=== PATIENT | female | born 1930 | race Caucasian/White ===

== ENCOUNTER 2017-05-15 15:32 | Emergency (ER) | payer MEDICARE, BC ==
--- NOTE | 2017-05-15 17:21 | EDM.PDOC ---
ED HPI GENERAL MEDICAL PROBLEM - General Chief Complaint: Lower Extremity Injury/Pain Stated Complaint: LUMPS LEFT THIGH AND BELOW KNEE Time Seen by Provider: 05/15/17 16:55 Source of Information: Reports: Patient History Limitations: Reports: No Limitations - History of Present Illness INITIAL COMMENTS - FREE TEXT/NARRATIVE: 86 yo female with a hx of Factor V Leiden Deficiency presents with a lumb behind her left knee that she is concerned might represent a DVT. This lump has been present for a couple days. No lower leg swelling. No SOB or pleuritic chest pain. Onset: Other ( a couple days ago) Onset Date: 05/13/17 Duration: Day(s): Location: Reports: Lower Extremity, Left Quality: Reports: Dull Severity: Mild Improves with: Reports: None Worsens with: Reports: Other (? time) Context: Reports: Other (Factor V Leiden Def) Associated Symptoms: Reports: No Other Symptoms Treatments [employer]: Reports: Other (see below) (none) - Related Data Allergies Allergy/AdvReac Type Severity Reaction Status Date / Time No Known Allergies Allergy Verified 05/15/17 16:45 Home Meds: Home Meds Azithromycin [IMW: Azithromycin] 05/15/17 [History] Brimonidine Tartrate [Alphagan P 0.1% Ophth Soln] 05/15/17 [History] Losartan/Hydrochlorothiazide [Losartan-HCTZ 100-12.5 MG] 05/15/17 [History] oxyCODONE 05/15/17 [History] Past Medical History HEENT History: Reports: Cataract, Retinal Detachment Gastrointestinal History: Reports: Hiatal Hernia - Past Surgical History Respiratory Surgical History: Reports: Lung Resection GI Surgical History: Reports: Appendectomy Female Surgical History: Reports: Hysterectomy Musculoskeletal Surgical History: Reports: Knee Replacement Social & Family History - Tobacco Use Smoking Status *Q: Never Smoker Review of Systems - Review of Systems Review Of Systems: See Below Constitutional: Reports: No Symptoms Respiratory: Reports: No Symptoms Skin: Reports: Lumps (R knee posteriorly) Neurological: Reports: Numbness (R leg below the knee, not new), Tingling ED EXAM, GENERAL - Physical Exam Exam: See Below Exam Limited By: No Limitations General Appearance: Alert, WD/WN, No Apparent Distress Respiratory/Chest: No Respiratory Distress, No Accessory Muscle Use Cardiovascular: Regular Rate, Rhythm, No Edema Extremities: Other (well healed anterior L knee surgical scar. No increased warmth. No calf pain. No LE edema. There is what may be a lipoma to the medial/ post. L knee. ) Neurological: Alert, Oriented, CN II-XII Intact, Normal Cognition Psychiatric: Normal Affect, Normal Mood Skin Exam: Warm, Dry, Intact, Normal Color, No Rash Lymphatic: No Adenopathy Course - Vital Signs Last Recorded V/S: Last Vital Signs Temp 36.2 C 05/15/17 17:03 Pulse 61 05/15/17 17:03 Resp 16 05/15/17 17:03 BP 161/85 H 05/15/17 17:03 Pulse Ox 96 05/15/17 17:03 Departure - Departure Time of Disposition: 17:23 Disposition: Home, Self-Care 01 Condition: Good Clinical Impression: Lipoma of left lower extremity Clinical Impression: (Ruled Out): Benign skin growth - Discharge Information Referrals: Manjinder Espino MD [Primary Care Provider] - Forms: ED Department Discharge
== END 2017-05-15 17:41 | disposition home or self-care (01) ==
LOC: JP.ED 15:32
DX: D17.24 Benign lipomatous neoplasm of skin and subcutaneous tissue of left leg (principal)
CPT/HCPCS: 99282; 99283